=== PATIENT | female | born 1960 | race Caucasian/White ===

== ENCOUNTER 2017-01-27 16:53 | Emergency (ER) | payer BC, OTHER ==
[2017-01-27 17:08] VITALS: O2SAT 95
[2017-01-27] MEDS ORDERED: XYLOCAINE 2% HCL 20 ML MDV ONE ×2 (17:12→17:36)
[2017-01-27] MEDS ORDERED: Xylocaine-Mpf 2% 5 Ml Vial IJ ONE (17:26)
--- NOTE | 2017-01-27 17:35 | ERPHSYRPT ---
- History of Present Illness Time Seen by Provider: 01/27/17 17:10 Source: patient Exam Limitations: clinical condition Patient Subjective Stated Complaint: staets cut her leg shaving. unable to stop bleeding.. says she has varicose veins. Triage Nursing Assessment: dressing was placed at home.. saturated on arrival Physician History: PATIENT STATES WHILE SHAVING HER LEGS SUSTAINED BLEEDING FROM A VARICOSE VEIN IN HER RIGHT LEG. DENIES PAIN OR SWELLING. Method of Injury: incised Occurred: just prior to arrival Quality: constant Severity of Pain-Max: none Severity of Pain-Current: none Lower Extremities Pain: leg: right Modifying Factors: Improves With: nothing Associated Symptoms: none Hx Tetanus, Diphtheria Vaccination/Date Given: No Hx Influenza Vaccination/Date Given: Yes Hx Pneumococcal Vaccination/Date Given: No - Review of Systems Constitutional: No Symptoms Ears, Nose, & Throat: No Symptoms Respiratory: No Symptoms Musculoskeletal: Injury Neurological: No Symptoms Psychological: No Symptoms - Past Medical History Pertinent Past Medical History: No - Past Surgical History Past Surgical History: No - Social History Smoking Status: Never smoker Drug Use: none Patient Lives Alone: No - Nursing Vital Signs Nursing Vital Signs: Initial Vital Signs Temperature 97.3 F 01/27/17 17:00 Pulse Rate 96 H 01/27/17 17:00 Respiratory Rate 18 01/27/17 17:00 Blood Pressure 170/100 01/27/17 17:00 O2 Sat by Pulse Oximetry 95 01/27/17 17:00 Pain Scale Pain Intensity 0 - Physical Exam General Appearance: no apparent distress Knees Exam: right knee: non-tender (THERE IS SUPERFICIAL VARICOSE VEINS NOTE WITH PUNCTURE SITE 1MM NOTED AT MID LATERAL CALF WITH HEMORRHAGE NOTED, RIGHT PEDIS PULSE 2 +) Mental Status Exam: alert, oriented x 3 Skin Exam: normal color SpO2 Interpretation: normal SpO2: 95 Oxygen Delivery: Room Air Procedures - Laceration/Wound Repair Right Calf Wound Location: Left, lower leg Wound Length (cm): 0.1 Wound's Depth, Shape: stellate Wound Explored: clean Irrigated: Yes Hibiclens Prep: Yes Anesthesia: local, 2% Lidocaine Volume Anesthetic (ccs): 1 Wound Repaired With: sutures Suture Size/Type: 4-0, prolene (A HORIZONTAL SUTURE PLACED AROUND PUNCTURE WOUND TO CONTROL HEMORRHAGE), ethilon Number of Sutures: 2 Ordered Tests: Medication Summary Discontinued Medications Generic Name Dose Route Start Last Admin Trade Name Quan PRN Reason Stop Dose Admin Lidocaine HCl Confirm 01/27/17 17:12 Xylocaine 2% Hcl 20 Ml Mdv Administered 01/27/17 17:13 Dose 1 ml .ROUTE .STK-MED ONE Lidocaine HCl 3 ml 01/27/17 17:26 Xylocaine-Mpf 2% 5 Ml Vial IJ 01/27/17 17:27 STAT ONE - Progress Counseled pt/family regarding: diagnosis - Departure Time of Disposition: 17:45 Departure Disposition: Home Clinical Impression: RUPTURED RIGHT CALF VARICOSE VEIN Condition: Stable Critical Care Time: No Additional Instructions: HAVE SUTURE REMOVED OVER VARICOSE VEIN PUNCTURE SITE. CONSULT YOUR FAMILY PHYSICIAN FOR EVALUATION OF YOUR BLOOD PRESSURE. RETURN TO EMERGENCY FOR BLEEDING FROM SITE.
[2017-01-27] MEDS ORDERED: BACIGUENT PACKET TP ONE (17:38)
[2017-01-27] MEDS ORDERED: BACIGUENT PACKET ONE (17:40)
[2017-01-27 17:57] VITALS: PULSE 82
[2017-01-27 17:58] VITALS: BP 150/73
== END 2017-01-27 17:58 | disposition home or self-care (01) ==
LOC: ED 16:53
PROC: 0HQKXZZ Repair Right Lower Leg Skin, External Approach (ICD-10-PCS; principal; 2017-01-27)
DX: I83.91 Asymptomatic varicose veins of right lower extremity (principal); W45.8XXA Other foreign body or object entering through skin, initial encounter; Y93.E8 Activity, other personal hygiene
CPT/HCPCS: 12001; 99282; A9270-GY

== ENCOUNTER 2018-08-16 19:55 | Emergency (ER) | payer BC, OTHER ==
--- NOTE | 2018-08-16 21:15 | ERPHSYRPT ---
- History of Present Illness Time Seen by Provider: 08/16/18 20:46 Source: patient Exam Limitations: no limitations Patient Subjective Stated Complaint: Pt states she slipped on garage floor hurting left ankle Triage Nursing Assessment: Stebbins/warm/dry, resp easy, gait not observed at this time, a&ox4, some swelling noted to left ankle, no obvious deformity Physician History: 57-year-old white female previously healthy arrives with complaint of pain in her left ankle symptoms since around 6:30 this evening. Patient states she slipped on a wet proximal floor twisting her left ankle she has pain in her left ankle with palpation and movement. Past medical history is negative. Past surgical history is negative. Social history patient denies tobacco alcohol or illicit drug use. Method of Injury: fell, twisted (twisted left ankle) Occurred: this evening (6:30 PM) Quality: constant, aching Severity of Pain-Max: moderate Severity of Pain-Current: mild Lower Extremities Pain: ankle: left Associated Symptoms: none Allergies/Adverse Reactions: No Known Drug Allergies Allergy (Verified 08/16/18 20:26) Hx Tetanus, Diphtheria Vaccination/Date Given: Yes Hx Influenza Vaccination/Date Given: Yes Hx Pneumococcal Vaccination/Date Given: No Immunizations Up to Date: Yes - Review of Systems Constitutional: No Fever, No Chills Eyes: No Symptoms Ears, Nose, & Throat: No Symptoms Respiratory: No Cough, No Dyspnea Cardiac: No Chest Pain, No Edema, No Syncope Abdominal/Gastrointestinal: No Abdominal Pain, No Nausea, No Vomiting, No Diarrhea Genitourinary Symptoms: No Dysuria Musculoskeletal: Fall, Joint Pain (pain and swelling left ankle) Skin: No Rash Neurological: No Dizziness, No Focal Weakness, No Sensory Changes Psychological: No Symptoms Endocrine: No Symptoms All Other Systems: Reviewed and Negative - Past Medical History Pertinent Past Medical History: No - Past Surgical History Past Surgical History: No - Social History Smoking Status: Never smoker Exposure to second hand smoke: No Drug Use: none Patient Lives Alone: No - Nursing Vital Signs Nursing Vital Signs: Initial Vital Signs Temperature 97.9 F 08/16/18 19:56 Pulse Rate 76 08/16/18 19:56 Respiratory Rate 20 08/16/18 19:56 Blood Pressure 182/75 08/16/18 19:56 O2 Sat by Pulse Oximetry 96 08/16/18 19:56 Pain Scale Pain Intensity 8 - Physical Exam General Appearance: mild distress, alert Eyes, Ears, Nose, Throat Exam: moist mucous membranes Neck Exam: non-tender, supple Cardiovascular/Respiratory Exam: chest non-tender, normal breath sounds, regular rate/rhythm, no respiratory distress Gastrointestinal/Abdominal Exam: non-tender, guarding Back Exam: normal inspection, No vertebral tenderness Hips Exam: bilateral: non-tender, normal inspection, normal range of motion, no evidence of injury Legs Exam: bilateral leg: non-tender, normal inspection, normal range of motion , no evidence of injury Knees Exam: bilateral knee: non-tender, normal inspection, normal range of motion, no evidence of injury Ankle Exam: right ankle: non-tender, normal inspection, normal range of motion, no evidence of injury, left ankle: other (left ankle moderate edema, pain with movement and palpation laterally) Foot Exam: bilateral foot: non-tender, normal inspection, normal range of motion , no evidence of injury DTR - Lower Extremities Exam: ankle (R): 2+, ankle (L): 2+ Neuro/Tendon Exam: normal sensation, normal motor functions Mental Status Exam: alert, oriented x 3, cooperative Skin Exam: normal color, warm, dry SpO2 Interpretation: normal (95%) SpO2: 95 - Course Nursing assessment & vital signs reviewed: Yes - Radiology Exams Left Ankle X-ray Interpretation: Interpreted by me (x ray left ankle: no fractures no subluxation) Ordered Tests: Active Orders 24 hr Category Date Time Status Crutches STAT Care 08/16/18 21:20 Active Splint STAT Care 08/16/18 21:16 Active ANKLE (3 VIEWS) Stat Exams 08/16/18 20:45 Taken - Progress Progress: improved Progress Note: 08/16/18 21:17 57-year-old white female arrives with complaint of pain and swelling left ankle after falling in her garage at approximately 6:30 PM this evening. Patient tender laterally with movement and palpation on the ankle of the left. X-ray left ankle (my read )no fracture no subluxation. Patient was offered Toradol injection she does not want pain medication right now we will have the nurses apply Aircast offered crutches. - Departure Time of Disposition: 21:21 Departure Disposition: Home Clinical Impression: Accidental fall Qualifiers: Encounter type: initial encounter Qualified Code(s): W19.XXXA - Unspecified fall, initial encounter Left ankle sprain Qualifiers: Encounter type: initial encounter Involved ligament of ankle: unspecified ligament Qualified Code(s): S93.402A - Sprain of unspecified ligament of left ankle, initial encounter Left ankle pain Qualifiers: Chronicity: acute Qualified Code(s): M25.572 - Pain in left ankle and joints of left foot Condition: Fair Critical Care Time: No Referrals: Provider,Unknown [Primary Care Provider] - Instructions: Ankle Sprain (DC) Additional Instructions: Return home. Ice and elevate your left ankle 24-48 hours. Crutches weightbearing as tolerated. Use Aircast 48-72 hours longer if pain persists. Nitro as prescribed. Your x-rays have been preliminarily read they will be reread tomorrow you will be contacted if any discrepancies are noted/ Follow-up with your family doctor if symptoms worse no better in 48 hours or persist longer than one week. Return for acute distress or for severe symptoms. Prescriptions: Hydrocodone/APAP 5-325 Tab^^^ [Nitro 5-325 Tablet^^^] 1 tab PO Q6HPRN PRN #10 tablet MDD 6 PRN Reason: left ankle pain
[2018-08-16] MEDS ORDERED: NORCO 5/325 MG ONE (21:28)
[2018-08-16 21:44] VITALS: BP 178/85; PULSE 70; O2SAT 97
[2018-08-16] MEDS: NORCO 5/325 MG PO ONE (21:45)
--- NOTE | 2018-08-16 22:31 | XRAY ---
Indication: Lateral pain following fall. Comparison: None 3 views of the left ankle demonstrates anterolateral soft tissue swelling, small heel spurs, and tiny medial ankle accessory ossicle. No other bony, articular, or soft tissue abnormalities.
== END 2018-08-16 21:56 | disposition home or self-care (01) ==
LOC: ED 19:55
DX: S93.402A Sprain of unspecified ligament of left ankle, initial encounter (principal); W19.XXXA Unspecified fall, initial encounter; W01.198A Fall on same level from slipping, tripping and stumbling with subsequent striking against other object, initial encounter; X50.1XXA Overexertion from prolonged static or awkward postures, initial encounter; Y93.89 Activity, other specified; Y92.89 Other specified places as the place of occurrence of the external cause; M25.572 Pain in left ankle and joints of left foot
CPT/HCPCS: 73610; 99284; A9270-GY